=== PATIENT | female | born 1950 | race Caucasian/White ===

== ENCOUNTER 2017-10-01 15:15 | Emergency (ER) | payer MEDICARE, OTHER ==
[2017-10-01] MEDS: HYDROmorphONE 1 MG/ML SYG IV (16:19)
[2017-10-01] MEDS: ONDANSETRON 4 MG INJ IV (16:19)
[2017-10-01] MEDS: SOD CHLORIDE 0.9% 1,000 ML IV (16:19)
[2017-10-01] MEDS ORDERED: KETAMINE 500 MG INJ (16:23)
[2017-10-01] MEDS ORDERED: PROPOFOL 20 ML (16:23)
[2017-10-01] MEDS: KETAMINE 500 MG INJ IV (17:10)
[2017-10-01] MEDS: PROPOFOL 200 MG INJ IV (17:10)
== END 2017-10-01 21:59 | disposition home or self-care (01) ==
LOC: E/R 15:15
DX: S73.014A Posterior dislocation of right hip, initial encounter (principal); J45.909 Unspecified asthma, uncomplicated; J44.9 Chronic obstructive pulmonary disease, unspecified; I10 Essential (primary) hypertension; X58.XXXA Exposure to other specified factors, initial encounter; Y92.9 Unspecified place or not applicable
CPT/HCPCS: 27250; 73510; 94770; 96374; 96375; 99285-25